=== PATIENT | male | born 1945 | race Caucasian/White ===

== ENCOUNTER 2018-02-15 06:00 | Day surgery (SDC) | payer MEDICARE, OTHER ==
[~2018-02-15] VITALS: Ht 182.9 cm; Wt 90.7 kg
--- NOTE | ~2018-02-15 | OP ---
PATIENT NAME: ISSAC OWEN MEDICAL RECORD: [id number] :43 LOCATION:[facility] ADMISSION DATE: SURGEON: JACQUES PLUNKETT MD DATE OF OPERATION: 02/15/2018 SURGEON: Jacques Plunkett MD ANESTHESIA: TIVA by Dr. Jacques Barajas. DIAGNOSIS: Elevated PSA. PROCEDURE: Transrectal ultrasound and prostate biopsy. FINDINGS: 70 gram prostate with hypoechoic areas internally. SPECIMENS: Prostate tissue biopsy cores. BLOOD LOSS: None. CLINICAL HISTORY: This is a 72-year-old male, who has an elevated PSA of 6.1. This was obtained on 01/06/2018. He has not had any PSA testing previously. He does have some obstructive voiding symptoms. FAMILY HISTORY: Positive for his father having BPH, but not prostate cancer. He comes today for a prostate biopsy. He is not allergic to any antibiotics. He was given Ancef honeycomb decapper to the OR. DESCRIPTION OF PROCEDURE: The patient was given IV sedation. He was placed in the lithotomy position and prepped and draped. The transrectal ultrasound probe was placed and we obtained prostate size measurements of 70 grams. Internal hypoechoic areas were seen within the prostate. Sextant biopsies were obtained with at least 3 cores from each sextant. I tried to get the hypoechoic areas and the biopsy specimen. Once all the tissue specimens were obtained, the procedure was terminated. The patient was awakened and brought back to his preoperative holding area. I will see him in followup next week to review the pathology results with him. TRANSINT:[id number] Voice Confirmation ID: [id number] DOCUMENT ID: [id number] JACQUES PLUNKETT MD at 0957 CC: [id number] DICTATION DATE: 02/15/18912 COUNTER MANAGER: 02/15/18 0949 [id number] [place] [address]
[~2018-02-15 06:00] MED LIST: COZAAR50 MG PO; SMZ-TMP DS TAB 800 PO
[2018-02-15 06:30] LABS: HEMATOCRIT 45.3 % (42.0-54.0); HEMOGLOBIN 15.4 g/dL (13.5-17.5); MCH 30.4 pg (26.0-34.0); MCV 89.3 fL (80.0-100.0); MEAN PLATELET VOLUME 9.5 fL (7.4-10.4); RBC 5.07 10x6/uL (4.20-6.10); RDW 13.8 % (11.5-14.5); WBC 7.6 10x3/uL (4.8-10.8)
[2018-02-15 07:27] VITALS: BP 148/75; Ht 182.9 cm; Wt 90.7 kg
== END 2018-02-15 11:00 | disposition home or self-care (01) ==
LOC: D.OPS 06:00 → D.PAN 08:30 → D.OPS 08:30 → D.PAN 08:45 → D.OPS 08:45
PROVIDERS: Anesthesiology
DX: R97.20 Elevated prostate specific antigen [PSA] (principal); Z01.812 Encounter for preprocedural laboratory examination